=== PATIENT | female | born 1980 | race Caucasian/White ===

== ENCOUNTER → 2018-03-22 | Outpatient (REF) ==
[~2018-03-22] MED LIST: DOC100 PO; HYDR-3104 PO; LEVO-3 PO; METF-421 PO; OXYC1TAB54 PO
--- NOTE | 2018-03-22 17:17 | RADIOLOGY IMAGING REPORT ---
[place] [facility] [place] NAME: Faviola West : 1980 MR: [id number] V: [id number] EXAM DATE: ORDERING PHYSICIAN: NELLIE ALATORRE TECHNOLOGIST: Location: [facility] - [place] Patient: Faviola West : 1980 Visit/Account:[id number] Date of Sevice: 03/22/2018 Exam type: ANKLE 3 VIEW MIN LEFT History: Left ankle pain and swelling Comparison: None. Findings: There is moderate soft tissue swelling surrounding the left ankle there is however no evidence of acu te fracture dislocation. Ankle mortise appears intact. There is a small left calcaneal spur. IMPRESSION: 1. Soft tissue swelling about the left ankle although no evidence of acute fracture or dislocation Report Dictated By: Lexi Sanchez MD at 03/22/2018 5:12 PM Report E-Signed By: Lexi Sanchze MD at 03/22/2018 5:13 PM WSN:[email or web address]
== END ==
LOC: RAD 16:30
PROVIDERS: ATTEND Nurse Practitioner
DX: M25.471 Effusion, right ankle (principal)

== ENCOUNTER → 2018-04-26 | Outpatient (REF) ==
[2014-05-05 12:40] VITALS: BMI 38.9
[~2018-04-26] MED LIST changes: +HYDR30CR10 TP
--- NOTE | 2018-04-26 11:36 | RADIOLOGY IMAGING REPORT ---
FACILITY: [facility] PATIENT NAME: Faviola West : 1980 MR: [id number] V: [id number] EXAM DATE: ORDERING PHYSICIAN: ROSALIA DIETRICH TECHNOLOGIST: Location: [facility] Patient: Faviola West : 1980 Visit/Account:[id number] Date of Sevice: 04/26/2018 MRI left ankle Indication: Ankle pain. Chronic swelling. Comparison: Plain films 03/22/2018 are reviewed. Technique: Sagittal T1-weighted and STIR, coronal proton density fat saturated, axial oblique proton- density fat-saturated and axial T2-weighted fat-saturated images were obtained through the left ankle . Findings: The marrow pattern of the distal tibia and the distal fibula is normal. With respect to the hindfoot, there is focal subchondral edema seen within the far medial margin of t he talus along the talonavicular joint space. There is adjacent edema seen within the navicular bone. This likely reflects underlying chondrosis and osteoarthritis. There is subtle edema seen within the peroneal tubercle of the calcaneus without fracture line. This may be stress related. There is a tra ce tibiotalar joint effusion and/or synovitis present. Articular surfaces are intact. No talar dome l esion is seen. The posterior and the middle subtalar joint spaces are maintained. With respect to the midfoot, multifocal osteoarthritis is present. There is marrow edema present with in multiple bones of the midfoot. Specifically this is seen to involve the cuboid, the navicular bone and the intermediate and lateral cuneiforms. This edema while mild is not centered about the osteoar thritis changes. This is more suggestive of underlying midfoot stress reaction without discrete fract ure line. Correlate clinically. Posteriorly, the Achilles insertion is normal. There is an intermediate heel spur. The plantar fascia origins are intact. Anteriorly, the extensor tendons are normal in thickness and signal. Medially, t he flexor tendons are normal in thickness and signal. Deltoid ligament fibers are intact. Laterally, peroneus longus tendon is normal in thickness and signal. Just distal to the lateral malleolus, there is a short segment, partial-thickness longitudinal split tear of the peroneus brevis tendon. No full -thickness tear or rupture. The talofibular and the tibiofibular ligaments are intact. There is subcutaneous edema present most pronounced along the posterior and medial aspect of the ankl e joint. This extends to the dorsum of the midfoot. IMPRESSION: 1. Multifocal mid foot osteoarthritis most pronounced at the talonavicular joint along its medial mar gin. 2. Marrow edema within multiple bones of the midfoot as well as along the lateral margin of the calca neus. Appearance and distribution would favor stress reaction without discrete stress fracture line. Correlate clinically. 3. Short segment partial-thickness longitudinal split tear of the peroneus brevis tendon without rupt ure. 4. Small tibiotalar joint effusion and/or synovitis. Articular surfaces are maintained. Report Dictated By: Asaf Waterman at 04/26/2018 11:18 AM Report E-Signed By: Asaf Waterman at 04/26/2018 11:33 AM WSN:[id number]
== END ==
LOC: MRI 01:54
PROVIDERS: ATTEND Orthopaedic Surgery Orthopaedic Surgery of the Spine
DX: M25.472 Effusion, left ankle (principal); M19.072 Primary osteoarthritis, left ankle and foot

== ENCOUNTER 2018-05-16 19:59 | Emergency (ER) | payer SELFPAY ==
[2014-05-05 12:40] VITALS: Wt 104.3 kg
[~2018-05-16 19:59] MED LIST changes: -METF-421 PO; +METF-452 PO
--- NOTE | 2018-05-16 20:02 | ER Report ---
History and Physical Time Seen By MD: 20:01 HPI/ROS CHIEF COMPLAINT: Right flank pain HISTORY OF PRESENT ILLNESS: Patient is a 38-year-old female here with complaints of right flank pain which started approximately 1 hour prior to arrival and is associated with nausea, vomiting and decreased urine output. Patient reports having a remote history of nephrolithiasis proximal 17 years in the past. Her last meal was a couple hours ago and she had 3 subsequent episodes of emesis. Patient is afebrile on denies blurred vision, difficulty swallowing, chest pain, shortness of breath, blood in the urine or stools. REVIEW OF SYSTEMS: Constitutional: No fever, no chills. Eyes: No discharge. ENT: No sore throat. Cardiovascular: No chest pain, no palpitations. Respiratory: No cough, no shortness of breath. Gastrointestinal: + right flank and mild right abdominal pain, + nausea and vomiting. Genitourinary: No hematuria, + decreased UO, frequency Musculoskeletal: + right flank back pain. Skin: No rashes. Neurological: + mild headache. Allergies: Coded Allergies: No Known Drug Allergies (Unverified , 08/17/17) Home Meds Reported Medications Ferrous Sulfate (IRON) 325 Mg Tablet, 325 MG PO DAILY 05/16/18 Levothyroxine Sodium (LEVOTHYROXINE SODIUM) 100 Mcg Tablet, 200 MCG PO QDAY, TAB 08/17/17 Metformin Hcl (METFORMIN HCL) 1,000 Mg Tablet, 1 TAB PO BID, TAB 08/17/17 Docusate Sodium (COLACE (OR EQUIV)) 100 Mg Cap, 100 MG PO BID, #30 Take 1 capsule twice a day. 05/29/12 Discontinued Reported Medications Oxycodone/Acetaminophen (PERCOCET 5/325 (OR EQUIV)) 1 Ea Tab, 1 - 2 EA PO q 4 hrs prn, #30 Take 1-2 tabs every 4 hours as needed for pain. 05/29/12 Discontinued Scripts Hydrocortisone 2.5 % 30 GM CREAM (Hydrocortisone 2.5 % 30 GM CREAM) 2.5 % Cream.appl, 1 ASHLEY TP BID for 30 Days, #1 GM 0 Refills Prov:HOLLY BENJAMIN NPC 03/01/18 Hx Smoking: No Hx Substance Use Disorder: No Hx Alcohol Use: No Constitutional Vital Sign - Last 24 Hours 05/16/18 20:02 Temp 98.6 Pulse 74 Resp 16 B/P (MAP) 142/82 Pulse Ox 95 O2 Delivery Room Air Physical Exam General Appearance: The patient is alert, has no immediate need for airway protection and no signs of toxicity. Mild distress secondary to pain Eyes: Pupils equal and round no pallor or injection. ENT, Mouth: Mucous membranes are moist. Respiratory: There are no retractions, lungs are clear to auscultation. Cardiovascular: Regular rate and rhythm. Gastrointestinal: Abdomen is soft and + mildly tender on the right lateral abdomen, no masses, bowel sounds normal. Neurological: No focal deficits Skin: Warm and dry, no rashes. Musculoskeletal: Neck is supple non tender. Extremities are nontender, nonswollen and have full range of motion. DIFFERENTIAL DIAGNOSIS: After history and physical exam differential diagnosis was considered for abdominal pain including but not limited to appendicitis, cholecystitis, gastritis and urinary tract infection, nephrolithiasis. Medical Decision Making Data Points Result Diagram: 05/16/18202905/16/182029 Laboratory Hematology Test 05/16/18 20:05 05/16/18 20:30 Urine Color Yellow Urine Clarity Cloudy Urine pH 5.0 pH (4.8-9.5) Urine Specific [place] 1.027 Urine Protein 30 mg/dL (NEGATIVE) Urine Glucose (UA) Negative mg/dL (NEGATIVE) Urine Ketones Negative mg/dL (NEGATIVE) Urine Blood Moderate (NEGATIVE) Urine Nitrite Negative (NEGATIVE) Urine Bilirubin Negative (NEGATIVE) Urine Urobilinogen 2.0 mg/dL (0.2-1.9) Urine Leukocyte Esterase Negative (NEGATIVE) Urine RBC 18 /HPF (0-2/HPF) Urine WBC 4 /HPF (0-5/HPF) Urine Squamous Epithelial Cells Many /LPF (</=FEW) Urine Bacteria Few /HPF (NONE-FEW) Urine Mucus Few /HPF (NONE-FEW) Red Blood Count 4.77 M/uL (4.17-5.56) Mean Corpuscular Volume 84.0 fL (80.0-96.0) Mean Corpuscular Hemoglobin 27.9 pg (26.0-33.0) Mean Corpuscular Hemoglobin Concent 33.3 g/dL (32.0-36.0) Red Cell Distribution Width 14.7 % (11.5-14.5) Mean Platelet Volume 8.7 fL (7.2-11.1) Neutrophils (%) (Auto) 65.8 % (39.4-72.5) Lymphocytes (%) (Auto) 22.0 % (17.6-49.6) Monocytes (%) (Auto) 10.3 % (4.1-12.4) Eosinophils (%) (Auto) 1.1 % (0.4-6.7) Basophils (%) (Auto) 0.8 % (0.3-1.4) Nucleated RBC Relative Count (auto) 0.1 /100WBC Neutrophils # (Auto) 7.3 K/uL (2.0-7.4) Lymphocytes # (Auto) 2.5 K/uL (1.3-3.6) Monocytes # (Auto) 1.1 K/uL (0.3-1.0) Eosinophils # (Auto) 0.1 K/uL (0.0-0.5) Basophils # (Auto) 0.1 K/uL (0.0-0.1) Nucleated RBC Absolute Count (auto) 0.01 K/uL Sodium Level 140 mmol/L (137-145) Potassium Level 3.5 mmol/L (3.5-5.0) Chloride Level 105 mmol/L (98-107) Carbon Dioxide Level 23 mmol/L (22-31) Blood Urea Nitrogen 11 mg/dl (7-18) Creatinine 0.80 mg/dl (0.52-1.04) Glomerular Filtration Rate Calc > 60.0 Random Glucose 124 mg/dl (75-110) Calcium Level 9.2 mg/dl (8.4-10.2) Total Bilirubin 0.3 mg/dl (0.2-1.3) Aspartate Amino Transf (AST/SGOT) 24 U/L (0-35) Alanine Aminotransferase (ALT/SGPT) 31 U/L (0-56) Alkaline Phosphatase 69 U/L (0-126) C-Reactive Protein 1.1 mg/dl (<1.0) Total Protein 7.9 g/dl (6.3-8.2) Albumin 4.1 g/dl (3.5-5.0) Lipase 235 U/L (23-300) Human Chorionic Gonadotropin, Qual Negative (NEGATIVE) Chemistry Test 05/16/18 20:05 05/16/18 20:30 Urine Color Yellow Urine Clarity Cloudy Urine pH 5.0 pH (4.8-9.5) Urine Specific [place] 1.027 Urine Protein 30 mg/dL (NEGATIVE) Urine Glucose (UA) Negative mg/dL (NEGATIVE) Urine Ketones Negative mg/dL (NEGATIVE) Urine Blood Moderate (NEGATIVE) Urine Nitrite Negative (NEGATIVE) Urine Bilirubin Negative (NEGATIVE) Urine Urobilinogen 2.0 mg/dL (0.2-1.9) Urine Leukocyte Esterase Negative (NEGATIVE) Urine RBC 18 /HPF (0-2/HPF) Urine WBC 4 /HPF (0-5/HPF) Urine Squamous Epithelial Cells Many /LPF (</=FEW) Urine Bacteria Few /HPF (NONE-FEW) Urine Mucus Few /HPF (NONE-FEW) White Blood Count 11.1 k/uL (4.5-11.0) Red Blood Count 4.77 M/uL (4.17-5.56) Hemoglobin 13.3 g/dL (12.0-16.0) Hematocrit 40.0 % (34.0-47.0) Mean Corpuscular Volume 84.0 fL (80.0-96.0) Mean Corpuscular Hemoglobin 27.9 pg (26.0-33.0) Mean Corpuscular Hemoglobin Concent 33.3 g/dL (32.0-36.0) Red Cell Distribution Width 14.7 % (11.5-14.5) Platelet Count 315 K/uL (150-450) Mean Platelet Volume 8.7 fL (7.2-11.1) Neutrophils (%) (Auto) 65.8 % (39.4-72.5) Lymphocytes (%) (Auto) 22.0 % (17.6-49.6) Monocytes (%) (Auto) 10.3 % (4.1-12.4) Eosinophils (%) (Auto) 1.1 % (0.4-6.7) Basophils (%) (Auto) 0.8 % (0.3-1.4) Nucleated RBC Relative Count (auto) 0.1 /100WBC Neutrophils # (Auto) 7.3 K/uL (2.0-7.4) Lymphocytes # (Auto) 2.5 K/uL (1.3-3.6) Monocytes # (Auto) 1.1 K/uL (0.3-1.0) Eosinophils # (Auto) 0.1 K/uL (0.0-0.5) Basophils # (Auto) 0.1 K/uL (0.0-0.1) Nucleated RBC Absolute Count (auto) 0.01 K/uL Glomerular Filtration Rate Calc > 60.0 Calcium Level 9.2 mg/dl (8.4-10.2) Total Bilirubin 0.3 mg/dl (0.2-1.3) Aspartate Amino Transf (AST/SGOT) 24 U/L (0-35) Alanine Aminotransferase (ALT/SGPT) 31 U/L (0-56) Alkaline Phosphatase 69 U/L (0-126) C-Reactive Protein 1.1 mg/dl (<1.0) Total Protein 7.9 g/dl (6.3-8.2) Albumin 4.1 g/dl (3.5-5.0) Lipase 235 U/L (23-300) Human Chorionic Gonadotropin, Qual Negative (NEGATIVE) Urinalysis Test 05/16/18 20:05 Urine Color Yellow Urine Clarity Cloudy Urine pH 5.0 pH (4.8-9.5) Urine Specific [place] 1.027 Urine Protein 30 mg/dL (NEGATIVE) Urine Glucose (UA) Negative mg/dL (NEGATIVE) Urine Ketones Negative mg/dL (NEGATIVE) Urine Blood Moderate (NEGATIVE) Urine Nitrite Negative (NEGATIVE) Urine Bilirubin Negative (NEGATIVE) Urine Urobilinogen 2.0 mg/dL (0.2-1.9) Urine Leukocyte Esterase Negative (NEGATIVE) Urine RBC 18 /HPF (0-2/HPF) Urine WBC 4 /HPF (0-5/HPF) Urine Squamous Epithelial Cells Many /LPF (</=FEW) Urine Bacteria Few /HPF (NONE-FEW) Urine Mucus Few /HPF (NONE-FEW) EKG/Imaging Imaging HISTORY: Right flank pain. Nausea and vomiting. TECHNIQUE: Axial CT images of the abdomen and pelvis were obtained without IV contrast, with coronal and sagittal 2D reconstructed images. One of the following dose optimization techniques was utilized in the performance of this exam: Automated exposure control; adjustment of the mA and/or kV according to the patient's size; or use of an iterative reconstruction technique. Specific details can be referenced in the facility's radiology CT exam operational policy. COMPARISON: None. FINDINGS: Evaluation of the solid and viscus parenchymal organs is limited without the benefit of IV contrast. Kidney/ureters/bladder: Moderate hydronephrosis of the right kidney with dilatation of the mid and upper right ureter. There is a 4 mm calculus in the distal right ureter at the UVJ. Additional nonobstructing 2 mm calculus in the lower right kidney. No left-sided urinary calculi. The left kidney is negative for hydronephrosis, with normal course and caliber of the left ureter. The urinary bladder is decompressed and grossly unremarkable. Liver: Negative. Gallbladder and bile ducts: Negative. Spleen: Negative. Pancreas: Negative. Adrenal glands: Negative. Bowel and peritoneum: The small bowel and colon are normal in caliber, without evidence of obstruction or any focal inflammatory process. No free fluid or free intraperitoneal air. Pelvic structures: Negative. Lymph node assessment: Negative. Vessels: Negative. Musculoskeletal: Negative. Body wall: Negative. Lung bases: Negative. IMPRESSION: 1. Moderate hydronephrosis of the right kidney, with a 4 mm calculus in the distal right ureter at the UVJ. 2. Additional nonobstructing 2 mm calculus in the right kidney. 3. No other acute intra-abdominal findings. ED Course/Re-evaluation Clinical Indication for ER IV: Hydration, IV Access ED Course Patient is a 38-year-old female here with complaints of right flank pain with a remote history of nephrolithiasis. She reports having nausea, vomiting. She was given IV fluids, Zofran, Toradol and IV lidocaine. Labs are unremarkable, kidney function was intact, electrolytes were normal, urinalysis showed no signs of infection but did have blood. CT of the abdomen and pelvis showed a 4 mm stone at the UVJ on the right with moderate hydronephrosis. Patient was updated regarding the findings and given prescription for tramadol and Zofran for outpatient treatment. She was advised to return promptly if she develop worsening pain, fevers, difficulty urinating, inability to tolerate by mouth intake. Patient was afebrile, hemodynamically stable at time of discharge. Decision to Disposition Date: May 16, 2018 Decision to Disposition Time: 22:04 Depart Departure Latest Vital Signs Vital Signs Date Time Temp Pulse Resp B/P (MAP) Pulse Ox O2 Delivery O2 Flow Rate FiO2 05/16/18 20:02 98.6 74 16 142/82 95 Room Air Impression: Primary Impression: Ureterolithiasis Condition: Improved Disposition: HOME OR SELF-CARE Referrals: ARON AHUMADA MD (PCP) New Scripts Ondansetron (ZOFRAN ODT) 4 Mg Tab.rapdis 4 MG PO Q6H PRN for NAUSEA/VOMITING, #20 TAB.ADELSO 0 Refills Prov: XI MCCAIN DO 05/16/18 Tramadol Hcl (TRAMADOL HCL) 50 Mg Tablet 50 MG PO Q6H PRN for PAIN, #12 TAB 0 Refills Prov: XI MCCAIN DO 05/16/18 Patient Instructions: Kidney Stones (ED) Additional Instructions: You were diagnosed with a right ureteral stone at the junction between the ureter and the bladder. Please drink plenty of water. You may take ibuprofen or naproxen as needed for pain control and tramadol every 6-8 hours as needed for breakthrough pain. You may take 1 tablet of Zofran every 6 hours as needed for nausea and vomiting. Please return if you develop fevers, worsening pain, inability to hold down fluids or food. XI MCCAIN DO May 16, 2018 20:02
[2018-05-16] MEDS ORDERED: FERR325T24 PO (20:12)
[2018-05-16] MEDS ORDERED: NS(*) 0.9% 1000 ML BAG 1,000 ML IV ONE (20:17)
[2018-05-16] MEDS ORDERED: KETOROLAC 30 MG/ML VIAL IVP ONE (20:20)
[2018-05-16] MEDS ORDERED: ONDANSETRON 4 MG/2 ML VIAL IVP ONE (20:20)
[2018-05-16 20:49] LABS: PLATELET COUNT, AUTOMATED 315 K/uL (150-450)
[2018-05-16] MEDS ORDERED: LIDOCAINE 2% IV 100 MG/5ML SYR IVP ONE (20:50)
[2018-05-16 21:37] VITALS: BP 130/77
--- NOTE | 2018-05-16 21:58 | RADIOLOGY IMAGING REPORT ---
FACILITY: [facility] PATIENT NAME: Faviola West : 1980 MR: [id number] V: [id number] EXAM DATE: ORDERING PHYSICIAN: XI MCCAIN TECHNOLOGIST: Location: [facility] Patient: Faviola West : 1980 Visit/Account:[id number] Date of Sevice: 05/16/2018 EXAMINATION: CT abdomen and pelvis without IV contrast HISTORY: Right flank pain. Nausea and vomiting. TECHNIQUE: Axial CT images of the abdomen and pelvis were obtained without IV contrast, with zeng l and sagittal 2D reconstructed images. One of the following dose optimization techniques was utilized in the performance of this exam: Autom ated exposure control; adjustment of the mA and/or kV according to the patient's size; or use of an i terative reconstruction technique. Specific details can be referenced in the facility's radiology C T exam operational policy. COMPARISON: None. FINDINGS: Evaluation of the solid and viscus parenchymal organs is limited without the benefit of IV contrast. Kidney/ureters/bladder: Moderate hydronephrosis of the right kidney with dilatation of the mid and up per right ureter. There is a 4 mm calculus in the distal right ureter at the UVJ. Additional nonobstructing 2 mm calculus in the lower right kidney. No left-sided urinary calculi. The left kidney is negative for hydronephrosis, with normal course and caliber of the left ureter. The urinary bladder is decompressed and grossly unremarkable. Liver: Negative. Gallbladder and bile ducts: Negative. Spleen: Negative. Pancreas: Negative. Adrenal glands: Negative. Bowel and peritoneum: The small bowel and colon are normal in caliber, without evidence of obstructi on or any focal inflammatory process. No free fluid or free intraperitoneal air. Pelvic structures: Negative. Lymph node assessment: Negative. Vessels: Negative. Musculoskeletal: Negative. Body wall: Negative. Lung bases: Negative. IMPRESSION: 1. Moderate hydronephrosis of the right kidney, with a 4 mm calculus in the distal right ureter at th e UVJ. 2. Additional nonobstructing 2 mm calculus in the right kidney. 3. No other acute intra-abdominal findings. Report Dictated By: Julio Hong MD at 05/16/2018 9:49 PM Report E-Signed By: Julio Hong MD at 05/16/2018 9:53 PM [id number]
[2018-05-16] MEDS ORDERED: ONDANSETRON 4 MG ODT TH SL ONE (22:00)
[2018-05-16] MEDS ORDERED: traMADol 50 MG TAB TH 2 TAB/BOTTLE PO ONE (22:00)
[2018-05-16] MEDS ORDERED: ONDA4TAB PO (22:02)
[2018-05-16] MEDS ORDERED: TRAM-420 PO (22:02)
== END 2018-05-16 22:20 | disposition home or self-care (01) ==
LOC: ER 20:41
DX: N20.1 Calculus of ureter (principal)
CPT/HCPCS: 74176; 81001; 83690; 84703; 85025; 86140; 96361; 96374; 96375; 99284; C9399; J1885; J2001; J2405; J7030; S0119; 82040; 82247; 82310; 82374; 82435; 82565; 82947; 84075; 84132; 84155; 84295; 84450; 84460; 84520